=== PATIENT | male | born 1955 | race African-American/Black ===

== ENCOUNTER 2022-06-09 21:56 | Inpatient (IN) | payer MEDICARE, OTHER ==
[~2022-06-09] VITALS: Ht 175.3 cm; Wt 75.1 kg
[2022-06-10] MEDS ORDERED: ACETAMINOPHEN 500MG TABLET PO ONE (03:45)
[2022-06-10] MEDS ORDERED: FLUORESCEIN SODIUM 1MG/STRIP LEFTEYE ONE (04:30)
[2022-06-10] MEDS ORDERED: ALBUTEROL (0.083%) 2.5MG/3ML NEB HHN ONE (04:45)
[2022-06-10] MEDS ORDERED: PREDNISONE 20MG TABLET PO ONE (04:45)
[2022-06-10 05:32] LABS: BASOPHILS % 0.6 % (0.0-2.0); EOSINOPHILS % 5.3 % (0.0-5.0); HEMOGLOBIN. 16.3 g/dL (14.0-18.0); LYMPHOCYTES % 30.9 % (20.0-50.0); MEAN CORPUSCULAR HEMOGLOBIN 31.6 pg (28.0-32.0); MEAN CORPUSCULAR VOLUME 90.9 fL (80.0-94.0); MONOCYTES % 11.8 % (2.0-8.0); NEUTROPHILS % 51.4 % (40.0-76.0); RED BLOOD CELL COUNT 5.17 mill/uL (4.7-6.1); RED CELL DISTRIBUTION WIDTH 12.2 % (11.6-14.6)
[2022-06-10 06:02] LABS: CHLORIDE 111 mEq/L (98-107)
[2022-06-10] MEDS ORDERED: IPRATROPIUM/ALBUTEROL 0.5-3(2.5)MG/3ML NEB HHN ONE (08:45)
[2022-06-10 09:47] LABS: PLATELET 288 x1000/uL (130-400)
[2022-06-10] MEDS ORDERED: TIOT18CA3 INH (10:23)
[2022-06-10] MEDS ORDERED: ALBU6.7H15 INH (10:23)
[2022-06-10] MEDS ORDERED: ALBU2.5V13 NEB (10:23)
[2022-06-10] MEDS ORDERED: P20 MT (10:23)
[2022-06-10] MEDS ORDERED: IPRATROPIUM/ALBUTEROL 0.5-3(2.5)MG/3ML NEB HHN NR (10:30)
[2022-06-10 11:16] VITALS: BP 190/83
== END 2022-06-10 11:29 | disposition home or self-care (01) | DRG 605 ==
LOC: ER 21:56 → MICUSO 06-10 05:22 → EDBEDREQTM 06-10 05:25 → EDBEDREQ 06-10 05:25
PROVIDERS: ADMIT Internal Medicine; ATTEND Internal Medicine
DX: S00.83XA Contusion of other part of head, initial encounter (principal); J44.1 Chronic obstructive pulmonary disease with (acute) exacerbation; I10 Essential (primary) hypertension; Z20.822 Contact with and (suspected) exposure to COVID-19; H53.8 Other visual disturbances; Y08.89XA Assault by other specified means, initial encounter; Y93.89 Activity, other specified; Y92.89 Other specified places as the place of occurrence of the external cause; Y99.8 Other external cause status
CPT/HCPCS: 36415; 70486; 71045; 80053; 83880; 84484; 85025; 87426; 93005; 94640; 99285; J7512